=== PATIENT | male | born 1990 | race Caucasian/White ===

== ENCOUNTER 2022-05-15 09:34 | Emergency (ER) | payer OTHER ==
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
[2022-05-16 01:16] VITALS: TEMP 97.3
[2022-05-16 01:29] VITALS: BP 120/62; O2SAT 98
== END 2022-05-15 11:20 | disposition home or self-care (01) ==
LOC: ER 09:34
DX: R51.9 Headache, unspecified (principal); F07.81 Postconcussional syndrome; F17.210 Nicotine dependence, cigarettes, uncomplicated
CPT/HCPCS: 70450; 72125; 99283